=== PATIENT | female | born 2000 | race Caucasian/White ===

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

== ENCOUNTER 2021-10-08 15:59 | Emergency (ER) | payer OTHER, BC, MEDICAID, SELFPAY ==
[2021-10-08 16:30] VITALS: BP 125/80; PULSE 80; RESP 16; TEMP 36.4; O2SAT 99
--- NOTE | 2021-10-08 18:38 | USR_ITS ---
PROCEDURE INFORMATION: Exam: US Nonobstetric Pelvis; Complete Exam date and time: 10/08/2021 7:10 PM Age: 21 years old Clinical indication: Abdominal pain; Right lower quadrant; Additional info: Rlq pain vaginal bleeding TECHNIQUE: Imaging protocol: Transabdominal pelvic nonobstetric ultrasound. Complete exam. Real time ultrasound with image documentation. COMPARISON: No relevant prior studies available. FINDINGS: Uterus: The uterus measures 8.7 x 5.8 x 7.4 cm. The uterus is retroflexed. The endometrium is poorly visualized and measures approximately 3 mm. Cervix: The cervix is normal. Right ovary/adnexa: The right ovary measures 3.7 x 2.8 x 3.5 cm with normal blood flow. Left ovary/adnexa: The left ovary measures 3.4 x 2.2 x 2.2 cm with normal blood flow. Intraperitoneal space: No intraperitoneal fluid. Urinary bladder: Normal. US/US pelvic limited [id number] IMPRESSION: No acute finding.
--- NOTE | 2021-10-08 18:42 | ED_ITS ---
HPI - Female Genitourinary General: Chief complaint: Vaginal Bleeding Stated complaint: bleeding/blacking out/n/v Time Seen by Provider: 10/08/21 18:10 History of Present Illness: 21-year-old female with a history of ongoing dysfunctional uterine bleeding. Despite multiple methods of control in the past, and Implanon currently, she experiences quite heavy periods. Up to 3 tampons per hour at times. She is on her period currently. She has noted clots. She does not believe she is . No fever. No other discharge. She had a pelvic exam a month ago, with Pap smear and swabs that were all normal by her breaker boss. She and family are frustrated that no imaging has been done. They are also worried about her blood count. She also has experienced right lower quadrant pain that has been ongoing, worse with her periods. MD elicited complaint: vaginal bleeding Pertinent past history: other Onset (ago): day(s) Location of symptoms: RLQ and pelvis Consistency: intermittent Vaginal discharge: none Vaginal bleeding: heavy and # pads per hour (3) Exacerbating factors: menstrual period Relieving factors: none Associated symptoms: Reports abdominal pain, syncope (in shower yesterday) and vaginal bleeding; Deny short of breath, fevers/chills, vaginal discharge or weakness Sexual activity: Yes Possible : unsure if Date of Last Menstrual Period: 09/08/21 Review of Systems Const: Denies: fever(s) ENMT: Denies: throat pain Card: Reports: syncope (in shower yesterday); Denies: chest pain Resp: Denies: dyspnea or productive cough GI: Reports: abdominal pain : Reports: vaginal bleeding; Denies: difficulty voiding or vaginal discharge [facility] ED Female Reproductive History: Date of last menstrual period: 09/08/21 Physical Exam Const: GENERAL APPEARANCE: cooperative HENMT: COMMON NORMALS: normocephalic, atraumatic and Normal external nose present HEAD & SCALP: normocephalic and atraumatic FACE & SINUS: normal facial exam and face symmetric NOSE: Normal external nose present Eye: COMMON NORMALS: Equal, round and reactive pupils present and EOMs intact bilaterally PUPIL: Yes Equal, round and reactive pupils present Neck/C-Spine: GENERAL: Yes trachea midline Chest: CHEST: Yes Symmetrical chest wall rise Resp: COMMON NORMALS: normal respiratory effort, No use of accessory muscles and clear to auscultation bilaterally AUSCULTATION: clear to auscultation bilaterally Cardio: COMMON NORMALS: regular rate and regular rhythm RATE: regular rate RHYTHM: regular rhythm GI: COMMON NORMALS: Normal to inspection, nondistended, normoactive bowel sounds present and Soft to palpation PALPATION: Yes Soft to palpation and Yes Tenderness to palpation present (GI) Details: RLQ : COMMON NORMALS: Yes no CVA tenderness BLADDER/KIDNEY EXAM: Yes no CVA tenderness SPECULUM EXAM - VAGINA: Yes vaginal bleeding OB/EXTERNAL & SPECULUM: vaginal bleeding Back/Pelvis: COMMON NORMALS: no CVA tenderness Extremity: COMMON NORMALS: no pedal edema Course Vital Signs: Vital signs: Vital Signs Temperature 97.6 F 10/08/21 16:30 Pulse Rate 84 10/08/21 19:40 Respiratory Rate 16 10/08/21 16:30 Blood Pressure 110/61 10/08/21 19:40 Pulse Oximetry 98 10/08/21 19:40 [facility] - Female Medical Decision Making 21-year-old female with dysfunctional uterine bleeding. She is not . CBC is normal including hemoglobin of 14. Platelet count is normal. BMP is normal. Urinalysis shows some blood, and is otherwise normal. The patient had a pelvic exam within the last month, and all swabs came back normal per her report. No change in sexual history since that time. Ultrasound of the pelvis reveals a normal endometrial lining, no masses, ovaries are normal. She will be allowed home for outpatient follow-up. We will place her on 5 days of Provera. She was counseled on this, and the withdrawal bleed that will happen following, hopefully to improve her dysfunctional uterine bleeding. Outpatient follow-up was stressed Lab Data : 10/08/21 19:00 10/08/21 19:00 Radiology Impressions Pelvis Ultrasound 10/08/21 18:38 IMPRESSION: No acute finding. Laboratory Results WBC 8.7 10^3/uL (4.5-13.0) 10/08/21 19:00 RBC 5.01 10^6/uL (4.1-5.3) 10/08/21 19:00 Hgb 14.3 g/dL (11.5-15.3) 10/08/21 19:00 Hct 41.7 % (37.0-47.0) 10/08/21 19:00 MCV 83.2 fl (81-99) 10/08/21 19:00 MCH 28.5 pg (28.0-34.0) 10/08/21 19:00 MCHC 34.3 g/dL (30.0-36.0) 10/08/21 19:00 RDW 12.8 % (12.1-15.1) 10/08/21 19:00 Plt Count 230 10^3/cmm (130-400) 10/08/21 19:00 MPV 10.6 fL (7.4-10.4) H 10/08/21 19:00 Neut % (Auto) 56.1 % 10/08/21 19:00 Lymph % (Auto) 36.0 % 10/08/21 19:00 Rains % (Auto) 5.7 % 10/08/21 19:00 Eos % (Auto) 1.0 % 10/08/21 19:00 Baso % (Auto) 0.9 % 10/08/21 19:00 Neut # (Auto) 4.88 10^3/uL (1.8-8.0) 10/08/21 19:00 Lymph # (Auto) 3.1 10^3/uL (1.5-6.5) 10/08/21 19:00 Rains # (Auto) 0.5 10^3/uL (0.2-0.9) 10/08/21 19:00 Eos # (Auto) 0.1 10^3/uL (0.0-0.8) 10/08/21 19:00 Baso # (Auto) 0.1 10^3/uL (0.0-0.1) 10/08/21 19:00 Nucleated RBC % (auto) 0 % 10/08/21 19:00 Nucleated RBCs # 0.0 /100WBC 10/08/21 19:00 Sodium 140 mmol/L (136-145) 10/08/21 19:00 Potassium 3.6 mmol/L (3.5-5.1) 10/08/21 19:00 Chloride 105 mmol/L (98-107) 10/08/21 19:00 Carbon Dioxide 23 mmol/L (22-29) 10/08/21 19:00 Anion Gap 15.6 (5-19) 10/08/21 19:00 BUN 8 mg/dL (6-20) 10/08/21 19:00 Creatinine 0.8 mg/dL (0.5-0.9) 10/08/21 19:00 GFR Calculation 91.4 mL/min (90-130) 10/08/21 19:00 Glucose 89 mg/dL (65-115) 10/08/21 19:00 Calculated Osmolality 288 mOsm/kg (285-295) 10/08/21 19:00 Calcium 9.2 mg/dL (8.5-10.5) 10/08/21 19:00 Total Bilirubin 0.5 mg/dL (0.15-1.2) 10/08/21 19:00 AST 20 U/L (0-32) 10/08/21 19:00 ALT 16 U/L (0-33) 10/08/21 19:00 Alkaline Phosphatase 60 IU/L (35-105) 10/08/21 19:00 Total Protein 7.3 g/dL (6.6-8.7) 10/08/21 19:00 Albumin 5.0 g/dL (3.5-5.2) 10/08/21 19:00 Globulin 2.3 g/dL (1.3-4.6) 10/08/21 19:00 Lipase 32 U/L (13-60) 10/08/21 19:00 HCG, Qual Negative (Negative) 10/08/21 19:30 Urine Color Straw (Yellow) 10/08/21 19:30 Urine Appearance Clear (CLEAR) 10/08/21 19:30 Urine pH 6 (5-7) 10/08/21 19:30 Ur Specific [place] 1.020 (1.005-1.030) 10/08/21 19:30 Urine Protein Trace (Negative) 10/08/21 19:30 Urine Glucose (UA) Norm (Normal) 10/08/21 19: Urine Ketones Negative (Negative) 10/08/21 19: Urine Blood 2+ (Negative) H 10/08/21 19:30 Urine Nitrate Negative (Negative) 10/08/21 19:30 Urine Bilirubin Neg (Negative) 10/08/21 19: Urine Urobilinogen Norm mg/dL (Negative) 10/08/21 19:30 Ur Leukocyte Esterase Negative (Negative) 10/08/21 19:30 Urine RBC 0-4 /hpf (0-2) H 10/08/21 19:30 Urine WBC 0-4 /hpf (0-5) H 10/08/21 19:30 Ur Squamous Epith Cells 5-10 /hpf (0-5) H 10/08/21 19:30 Amorphous Sediment Not Reportable 10/08/21 19:30 Urine Bacteria Trace /hpf (NONE) 10/08/21 19:30 Discharge Plan Discharge Patient Disposition: Home Clinical Impression: Dysfunctional uterine bleeding Condition: Stable Prescriptions: New Provera 10 mg tablet 10 mg PO DAILY 5 Days Qty: 5 0RF Rx Instructions: begin day 21 of cycle ketorolac 10 mg tablet 10 mg PO TID PRN (Reason: pain) Qty: 14 0RF Discharge Orders: Discharge ED (Routine); Ordered 10/08/21 Ordered By: Diogo Verma Patient Instructions: Abnormal (Dysfunctional) Uterine Bleeding (ED) Activity Restrictions/Additional Instructions: Return for fever, worsening symptoms despite treatment, vomiting liquids or medications, other concerning symptoms. Coding Level of Care Code ED Acid Tank Liner for Chg Fwd Exam Comprehensive
[2021-10-08 19:06] LABS: Basophils # 0.1 10^3/uL (0.0-0.1); Basophils % 0.9 %; Eosinophils # 0.1 10^3/uL (0.0-0.8); Hematocrit 41.7 % (37.0-47.0); Hemoglobin 14.3 g/dL (11.5-15.3); Lymphocytes # 3.1 10^3/uL (1.5-6.5); Mean Corpuscular HGB Conc 34.3 g/dL (30.0-36.0); Mean Corpuscular Hemoglobin 28.5 pg (28.0-34.0); Mean Corpuscular Volume 83.2 fl (81-99); Mean Platelet Volume 10.6 fL (7.4-10.4); Monocytes # 0.5 10^3/uL (0.2-0.9); Monocytes % 5.7 %; Neutrophils # 4.88 10^3/uL (1.8-8.0); Neutrophils % 56.1 %; Nucleated Red Blood Cells % 0 %; Platelet Count 230 10^3/cmm (130-400); Red Blood Count 5.01 10^6/uL (4.1-5.3); Red Cell Distribution Width 12.8 % (12.1-15.1); White Blood Count 8.7 10^3/uL (4.5-13.0)
[2021-10-08 19:24] LABS: HCG, Serum Qual Negative (Negative)
[2021-10-08 19:33] LABS: Alanine Aminotransferase 16 U/L (0-33); Alkaline Phosphatase 60 IU/L (35-105); Anion Gap 15.6 (5-19); Aspartate Amino Transferase 20 U/L (0-32); Blood Urea Nitrogen 8 mg/dL (6-20); Calcium 9.2 mg/dL (8.5-10.5); Carbon Dioxide 23 mmol/L (22-29); Chloride 105 mmol/L (98-107); Globulin 2.3 g/dL (1.3-4.6); Glomerular Filtration Rate 91.4 mL/min (90-130); Glucose 89 mg/dL (65-115); Lipase 32 U/L (13-60); Osmolality Calculated 288 mOsm/kg (285-295); Potassium 3.6 mmol/L (3.5-5.1); Sodium 140 mmol/L (136-145); Total Bilirubin 0.5 mg/dL (0.15-1.2); Total Protein 7.3 g/dL (6.6-8.7)
[2021-10-08 19:40] VITALS: BP 110/61; PULSE 84; O2SAT 98
[2021-10-08 19:47] LABS: HCG Qualitative Urine. Negative (Negative)
[2021-10-08 19:49] LABS: Add Urine Microscopic? YES; Bilirubin Urine Neg (Negative); Blood Urine 2+ (Negative); Glucose Urine UA Norm (Normal); Ketones Urine Negative (Negative); Leukocyte Esterase Urine Negative (Negative); Nitrate Urine Negative (Negative); Protein Urine Trace (Negative); Urine Appearance Clear (CLEAR); Urine Color Straw (Yellow); Urobilinogen Urine Norm (Negative); pH Urine 6 (5-7)
[2021-10-08 19:50] LABS: Add Urine Culture? No; Bacteria Urine TRACE /hpf; RBC Urine 0-4 /hpf (0-2); WBC Urine 0-4 /hpf (0-5)
[2021-10-08] MEDS: ketorolac 30 mg/mL INJ 15 MG IVP (21:08)
== END 2021-10-08 21:08 | disposition home or self-care (01) ==
PROVIDERS: Emergency Medicine; Physician Assistant; Emergency Provider Emergency Medicine
DX: N93.8 Other specified abnormal uterine and vaginal bleeding (principal)
CPT/HCPCS: 76857; 80053; 81001; 81025; 83690; 84703; 85025; 96374; 99285; J1885